=== PATIENT | female | born 2000 | race Caucasian/White ===

== ENCOUNTER 2020-07-18 14:36 | Emergency (ER) | payer OTHER ==
--- NOTE | 2020-07-18 14:59 | EDM.PDOC ---
ED HPI GENERAL MEDICAL PROBLEM - General Stated Complaint: ABDOMIN PAIN Time Seen by Provider: 07/18/20 14:37 Source of Information: Reports: Patient - History of Present Illness INITIAL COMMENTS - FREE TEXT/NARRATIVE: Angélica is a 20 y/o female who comes to the ER with complaints of lower abdominal pain and bloating that started about 45 minutes ago. She did have a large BM around the same time this occurred. She did have her Nexplanon removed on 06/28/2020 and has not yet had a period. She denies any bleeding or vaginal discharge. She has not taken any meds. Suprapubic Pain Score (Numeric/FACES): 5 - Related Data Allergies Allergy/AdvReac Type Severity Reaction Status Date / Time No Known Allergies Allergy Verified 07/18/20 14:46 Home Meds: Home Meds . [No Known Home Meds] 07/18/20 [History] Review of Systems - Review of Systems Review Of Systems: See Below Constitutional: Reports: No Symptoms Eyes: Reports: No Symptoms Ears: Reports: No Symptoms Nose: Reports: No Symptoms Mouth/Throat: Reports: No Symptoms Respiratory: Reports: No Symptoms Cardiovascular: Reports: No Symptoms GI/Abdominal: Reports: Abdominal Pain Genitourinary: Reports: No Symptoms Musculoskeletal: Reports: No Symptoms Skin: Reports: No Symptoms Neurological: Reports: No Symptoms Psychiatric: Reports: No Symptoms ED EXAM, GENERAL - Physical Exam Exam: See Below Exam Limited By: No Limitations General Appearance: Alert, WD/WN, No Apparent Distress Ears: Hearing Grossly Normal Nose: Normal Inspection Throat/Mouth: Normal Lips, Normal Teeth, Normal Voice Head: Atraumatic, Normocephalic Neck: Normal Inspection Respiratory/Chest: No Respiratory Distress, Lungs Clear, Chest Non-Tender Cardiovascular: Normal Peripheral Pulses, Regular Rate, Rhythm GI/Abdominal: Normal Bowel Sounds, Soft, No Distention, Tender (RLQ/LLQ, no rebound tenderness) (Female) Exam: Deferred Rectal (Female) Exam: Deferred Back Exam: Normal Inspection Extremities: Normal Inspection, Normal Range of Motion, Normal Capillary Refill Neurological: Alert, Oriented, CN II-XII Intact Psychiatric: Normal Affect Skin Exam: Warm, Dry, Intact, Normal Color Course - Vital Signs Text/Narrative:: The patient was seen by the [employer]. She was offered pain meds, but declined need on initial exam. Labs ordered. Labs reviewed, CT not indicated. Further discussion with patient reveals she is planning to start OCPs, but has not done so yet. Discussed what to expect when starting OCPs with patient. Questions were answered. She was given discharge instructions and left the ER in stable condition. Last Recorded V/S: Last Vital Signs Temp 36.9 C 07/18/20 14:40 Pulse 130 H 07/18/20 14:40 Resp 16 07/18/20 14:40 BP 136/64 07/18/20 14:40 Pulse Ox 97 07/18/20 14:40 - Orders/Labs/Meds Orders: Active Orders 24 hr Category Date Time Status COMPREHENSIVE METABOLIC PN,CMP [CHEM] Stat Lab 07/18/20 14:57 Received CULTURE URINE [RM] Stat Lab 07/18/20 14:50 Received Labs: Laboratory Tests 07/18/20 07/18/20 07/18/20 Range/Units 14:50 14:50 14:57 WBC 10.4 H (4.0-10.0) x10^3/uL RBC 4.77 (4.00-5.50) x10^6/uL Hgb 14.7 (12.0-16.0) g/dL Hct 42.2 (33.0-47.0) % MCV 88.5 (78.0-93.0) fL MCH 30.8 (26.0-32.0) pg MCHC 34.8 (32.0-36.0) g/dL RDW Coeff of Traci 12.8 (10.0-15.0) % Plt Count 269 (130-400) x10^3/uL Neut % (Auto) 66.5 (50.0-80.0) % Lymph % (Auto) 25.4 (25.0-50.0) % [place] % (Auto) 7.2 (2.0-11.0) % Eos % (Auto) 0.5 (0.0-4.0) % Baso % (Auto) 0.4 (0.2-1.2) % Urine Color Yellow (YELLOW) Urine Appearance Slightly cloudy H (CLEAR) Urine pH 7.5 (5.0-8.0) Ur Specific [place] 1.020 Urine Protein Negative (NEGATIVE) mg/dL Urine Glucose (UA) Negative (NEGATIVE) mg/dL Urine Ketones Negative (NEGATIVE) mg/dL Urine Occult Blood Negative (NEGATIVE) Urine Nitrite Negative (NEGATIVE) Urine Bilirubin Negative (NEGATIVE) Urine Urobilinogen 2.0 H (0.2) EU/dL Ur Leukocyte Esterase Small H (NEGATIVE) U Hyaline Cast (Auto) Few Urine RBC 0-5 (NOT SEEN) /HPF Urine WBC 10-20 H (NOT SEEN) /HPF Ur Squamous Epith Cells Moderate H (NEGATIVE) /HPF Urine Bacteria Rare (NEGATIVE) /HPF Urine Mucus Rare H (NEGATIVE) /LPF Urine Yeast (Budding) Moderate Urine HCG, Qual Negative (NEGATIVE) Departure - Departure Time of Disposition: 15:45 Disposition: Home, Self-Care 01 Condition: Good Clinical Impression: Bilateral lower abdominal pain - Discharge Information Instructions: Dayne [id number], Abdominal Pain, Adult, [id number] Additional Instructions: -Ibuprofen 200mg 4 tablets (800mg) oral every 8 hours fot the next 2-3 days (Use over the counter meds) -Use hot packs or hot baths as needed for comfort. -Suspect the pain you are having is related to ovulation or menstrual type cramping. This is not unusual following discontinuation of hormone based contraceptives. -You may start your oral contraceptives today or you may wait until you have your first period. If you start them today, remember that you may have some breakthrough bleeding for the first 2-3 cycles. Be sure to use condoms to prevent an unintended while you are starting the pills. -You may also try using Magnesium Glycinate to help with the menstrual type discomfort. You can purchase this over the counter at a local pharmacy or [facility]. -Sometimes after stopping hormone based contraception, you may experience an increase in cramps for a few cycles until your body adjusts. -If the pain continues or your symptoms seem worse, please follow up with your PCP/OBGYN provider or return to the ER. Sepsis Event Note (ED) - Focused Exam Vital Signs: Vital Signs Temp Pulse Resp BP Pulse Ox 07/18/20 14:40 36.9 C 130 H 16 136/64 97 - My Orders Last 24 Hours: My Active Orders 07/18/20 14:50 CULTURE URINE [RM] Stat 07/18/20 14:57 COMPREHENSIVE METABOLIC PN,CMP [CHEM] Stat - Assessment/Plan Last 24 Hours: My Active Orders 07/18/20 14:50 CULTURE URINE [RM] Stat 07/18/20 14:57 COMPREHENSIVE METABOLIC PN,CMP [CHEM] Stat
[2020-07-18 15:26] LABS: CHLORIDE,CL 105 mmol/L (98-107); SODIUM,NA 143 mmol/L (136-145)
[2020-07-18 15:27] LABS: ANION GAP 15.9 mmol/L (10-20)
== END 2020-07-18 15:50 | disposition home or self-care (01) ==
LOC: VM.ED 14:36
DX: R10.31 Right lower quadrant pain (principal); R10.32 Left lower quadrant pain
CPT/HCPCS: 36415; 80053; 81001; 81025; 85025; 87086; 99284